=== PATIENT | female | born 1955 | race Two or more races ===

== ENCOUNTER 2022-08-30 16:10 | Emergency (ER) | payer OTHER ==
[~2022-08-30] VITALS: Ht 167.6 cm; Wt 83.9 kg
[~2022-08-30 16:10] MED LIST: CIPRO500 MG PO; ULTRACET PO
[2022-08-30] MEDS ORDERED: MACRODANTIN100 M1 PO (20:23)
[2022-08-30] MEDS ORDERED: PEPCID AC20 MG PO (20:23)
[2022-08-30] MEDS ORDERED: ONDANSETRON ODT8 MG PO (20:24)
[2022-08-30] MEDS ORDERED: LEVSIN/SL0.125 MG SL (20:24)
== END 2022-08-30 20:51 | disposition home or self-care (01) ==
LOC: ER 16:10
DX: R10.32 Left lower quadrant pain (principal); Z88.6 Allergy status to analgesic agent; K44.9 Diaphragmatic hernia without obstruction or gangrene

== ENCOUNTER 2023-01-24 20:24 | Emergency (ER) | payer OTHER ==
[~2023-01-24] VITALS: Ht 167.6 cm; Wt 78.5 kg
[~2023-01-24 20:24] MED LIST changes: +LEVSIN/SL0.125 MG SL; +MACRODANTIN100 M1 PO; +ONDANSETRON ODT8 MG PO; +PEPCID AC20 MG PO
[2023-01-24] MEDS ORDERED: COZAAR25 MG PO (20:34)
[2023-01-24] MEDS ORDERED: [UNRECOGNIZED DRUG - OTHER] (20:35)
[2023-01-24] MEDS ORDERED: [UNRECOGNIZED DRUG - OTHER] (20:35)
[2023-01-24] MEDS ORDERED: DEXILANT30 MG (20:35)
[2023-01-24] MEDS ORDERED: LASIX20 MG (20:35)
[2023-01-24] MEDS ORDERED: [UNRECOGNIZED DRUG - OTHER] (20:35)
[2023-01-24 21:10] LABS: HEMOGLOBIN 14.3 g/dL (12.0-15.00); MEAN CELL VOLUME 87.1 fL (80.00-100.00); MEAN CORPUSCULAR HEMOGLOBIN 30.5 pg (27.00-32.0); PLATELET COUNT 268 K/uL (150-450); RED CELL DISTRIBUTION WIDTH 13.4 % (11.5-14.5)
[2023-01-24 21:31] LABS: ALBUMIN 4.3 gm/dL (3.4-5.0); BILIRUBIN TOTAL 0.4 mg/dL (0.3-1.2); BILIRUBIN,CONJUGATED 0.11 mg/dL (0.0-0.2); BILIRUBIN,UNCONJUGATED 0.29 mg/dL (0.0-0.6); CALCIUM 9.9 mg/dL (8.5-10.1); CREATININE SERUM 1.08 mg/dL (0.55-1.02); GFR 50.76; GLOBULINA 3.5 G/DL (2.4-3.5); POTASSIUM 4.1 mEq/L (3.5-5.1); TOTAL PROTEIN 7.8 gm/dL (6.4-8.2)
== END 2023-01-24 22:32 | disposition home or self-care (01) ==
LOC: ER 20:25
PROVIDERS: General Practice
DX: K29.70 Gastritis, unspecified, without bleeding (principal); A08.8 Other specified intestinal infections; I10 Essential (primary) hypertension; E11.9 Type 2 diabetes mellitus without complications; Z20.822 Contact with and (suspected) exposure to COVID-19; Z88.5 Allergy status to narcotic agent; Z88.6 Allergy status to analgesic agent

== ENCOUNTER 2023-02-06 13:27 | Emergency (ER) | payer OTHER ==
[~2023-02-06] VITALS: Ht 167.6 cm; Wt 78.0 kg
[~2023-02-06 13:27] MED LIST changes: +COZAAR25 MG PO; +DEXILANT30 MG; +LASIX20 MG; +[UNRECOGNIZED DRUG - OTHER]; +[UNRECOGNIZED DRUG - OTHER]; +[UNRECOGNIZED DRUG - OTHER]
== END 2023-02-06 15:52 | disposition home or self-care (01) ==
LOC: ER 13:28
DX: I10 Essential (primary) hypertension (principal); Z88.8 Allergy status to other drugs, medicaments and biological substances; Z88.6 Allergy status to analgesic agent
CPT/HCPCS: 36415; 96365; 99284; J3490